=== PATIENT | male | born 1965 | race Caucasian/White ===

== ENCOUNTER 2024-06-17 17:43 | Emergency (ER) | payer SELFPAY ==
[~2024-06-17] VITALS: Ht 172.7 cm; Wt 95.5 kg
[2024-06-17 17:46] VITALS: O2SAT 99
[2024-06-17 18:51] VITALS: BP 202/83; PULSE 91; RESP 16; TEMP 36.8; O2SAT 95
[2024-06-17] MEDS ORDERED: NAPR220C61 MT (20:24)
== END 2024-06-17 20:31 | disposition home or self-care (01) ==
LOC: ER 17:43
DX: G89.29 Other chronic pain (principal); M54.50 Low back pain, unspecified; E11.9 Type 2 diabetes mellitus without complications; I10 Essential (primary) hypertension; Z99.2 Dependence on renal dialysis; W01.0XXA Fall on same level from slipping, tripping and stumbling without subsequent striking against object, initial encounter; Y93.89 Activity, other specified; Y92.89 Other specified places as the place of occurrence of the external cause; Y99.8 Other external cause status
CPT/HCPCS: 99282